=== PATIENT | male | born 1990 | race Two or more races ===

== ENCOUNTER 2019-07-03 09:33 | Emergency (ER) | payer MEDICAID, OTHER ==
[2019-07-03 09:48] VITALS: BP 118/85; PULSE 88
[2019-07-03] MEDS ORDERED: predniSONE 20 MG Tab PO ONE (10:08)
[2019-07-03] MEDS ORDERED: Albuterol 0.083% 2.5 MG/3 ML Neb Soln NEB ONE (10:08)
--- NOTE | 2019-07-03 10:10 | EDM.PDOC ---
<Loki Velarde - Last Filed: 07/03/19 10:54> ED HPI GENERAL MEDICAL PROBLEM - General Chief Complaint: Respiratory Problem Stated Complaint: CHEST DISCOMFORT Time Seen by Provider: 07/03/19 09:52 Source of Information: Reports: Patient History Limitations: Reports: No Limitations - History of Present Illness INITIAL COMMENTS - FREE TEXT/NARRATIVE: 28 year old male with complaints of shortness of breath. The patient reports that he has a history of asthma and uses a symbicort inhaler daily. He, however, has not used symbicort for about a week due to the fact that his insurance changed and he now has to get his medication through the mail and he needs his physician, Susanna Naidu, to fill out paperwork regarding this. He has not been able to get through to her and he has called and left messages. His breathing is now tight and wheezy. He does not use a rescue inhaler as he states that this has never worked for him in the past. Treatments CASER: Reports: Acetaminophen Chest Pain Score (Numeric/FACES): 7 - Related Data Allergies Allergy/AdvReac Type Severity Reaction Status Date / Time No Known Allergies Allergy Verified 07/03/19 09:48 Home Meds: Home Meds Budesonide/Formoterol Fumarate [Symbicort 160-4.5 Mcg Inhaler] 1 puff INH BID [History] Past Medical History - Past Health History Medical/Surgical History: Denies Medical/Surgical History Respiratory History: Reports: Asthma Social & Family History - Family History Family Medical History: Noncontributory - Tobacco Use Smoking Status *Q: Never Smoker Second Hand Smoke Exposure: No - Caffeine Use Caffeine Use: Reports: Coffee - Recreational Drug Use Recreational Drug Use: No ED ROS GENERAL - Review of Systems Review Of Systems: See Below Constitutional: Reports: No Symptoms. Denies: Fever, Chills, Weakness HEENT: Reports: No Symptoms. Denies: Rhinitis, Sinus Problem Respiratory: Reports: Shortness of Breath (describes his breathing as "tight"), Wheezing, Cough. Denies: Sputum Cardiovascular: Reports: No Symptoms. Denies: Chest Pain, Edema, Lightheadedness Endocrine: Reports: No Symptoms GI/Abdominal: Reports: No Symptoms : Reports: No Symptoms Musculoskeletal: Reports: No Symptoms Skin: Reports: No Symptoms Neurological: Reports: No Symptoms Psychiatric: Reports: No Symptoms Hematologic/Lymphatic: Reports: No Symptoms Immunologic: Reports: No Symptoms ED EXAM, GENERAL - Physical Exam Exam: See Below Exam Limited By: No Limitations General Appearance: Alert, WD/WN, No Apparent Distress Ears: Normal External Exam, Hearing Grossly Normal Nose: Normal Inspection, No Blood Throat/Mouth: Normal Inspection, Normal Lips, Normal Voice, No Airway Compromise Head: Atraumatic, Normocephalic Neck: Normal Inspection, Supple, Non-Tender Respiratory/Chest: Chest Non-Tender, Decreased Breath Sounds (very poor air exchange), Wheezing (inspiratory wheezes noted bilaterally posterior). No: Lungs Clear, Normal Breath Sounds, Crackles, Rales, Rhonchi, Accessory Muscle Use Cardiovascular: Normal Peripheral Pulses, Regular Rate, Rhythm, No Edema, No Murmur GI/Abdominal: Normal Bowel Sounds, Soft, Non-Tender (Male) Exam: Deferred Rectal (Males) Exam: Deferred Back Exam: Normal Inspection Extremities: Normal Inspection, Normal Range of Motion, Normal Capillary Refill Neurological: Alert, Oriented, Normal Cognition, No Motor/Sensory Deficits Psychiatric: Normal Affect, Normal Mood Skin Exam: Warm, Dry, Intact, Normal Color, No Rash Lymphatic: No Adenopathy Course - Vital Signs Last Recorded V/S: Last Vital Signs Temp 97.5 F 07/03/19 09:45 Pulse 88 07/03/19 09:45 Resp 18 07/03/19 09:45 BP 118/85 07/03/19 09:45 Pulse Ox 98 07/03/19 10:08 - Orders/Labs/Meds Meds: Medications Discontinued Medications Generic Name Dose Route Start Last Admin Trade Name Jaylan PRN Reason Stop Dose Admin Albuterol 2.5 mg 07/03/19 10:08 07/03/19 10:20 Proventil Neb Soln NEB 07/03/19 10:09 2.5 mg ONETIME ONE Administration Prednisone 40 mg 07/03/19 10:08 07/03/19 10:31 Prednisone PO 07/03/19 10:09 40 mg ONETIME ONE Administration - Re-Assessments/Exams Free Text/Narrative Re-Assessment/Exam: 07/03/19 10:10 I have ordered an albuterol nebulizer for this patient as well as 40mg po prednisone 07/03/19 10:47 After the nebulizer, pt states that his breathing is much better. I do not hear any wheezes and he has better air movement. Departure - Departure Disposition: Home, Self-Care 01 Clinical Impression: Exacerbation of asthma - Discharge Information Instructions: Asthma, Adult Referrals: Susanna Naidu PA-C [Primary Care Provider] - Forms: ED Department Discharge Additional Instructions: Continue to use rescue inhaler every 4-6 hours as needed, prescription of prednisone for 40 mg daily provided if needed for further difficulty. Continue previously prescribed medications as best you can. Return to ED as needed if symptoms worsening in any way. <Pedro Carrasco - Last Filed: 07/06/19 13:21> Course - Re-Assessments/Exams Free Text/Narrative Re-Assessment/Exam: 07/06/19 13:20 Initial hx and exam was done by NIMESH Elliott student. I agree with her hx and exam as documented. I have also examined and interviewed patient. He feels better and breathing better after a neb treatment. Discharge instr. as documented. Departure - Departure Time of Disposition: 10:48 Preliminary Cause of *Q: Sepsis & Multi System Organ Failure
== END 2019-07-03 11:00 | disposition home or self-care (01) ==
LOC: JD.ED 09:33
DX: J45.901 Unspecified asthma with (acute) exacerbation (principal)
CPT/HCPCS: 94640; 99284; A9270; 99283